=== PATIENT | female | born 1980 | race Caucasian/White ===

== ENCOUNTER 2023-11-01 15:34 | Emergency (ER) | payer MEDICAID ==
[~2023-11-01] VITALS: Ht 160 cm; Wt 73.6 kg
[2023-11-01 20:38] VITALS: BP 132/89; PULSE 64; RESP 16; TEMP 98.4; O2SAT 100
== END 2023-11-01 20:43 | disposition home or self-care (01) ==
LOC: ER 15:35
DX: I80.9 Phlebitis and thrombophlebitis of unspecified site (principal)
CPT/HCPCS: 93971; 99284